=== PATIENT | female | born 1960 | race Caucasian/White ===

== ENCOUNTER → 2017-04-14 | Outpatient (CLI) | payer OTHER ==
[~2017-04-14] MED LIST: ADDERALL XR 3030 MG PO; ADVIL200 MG PO; AMPHETAMINE SAL30 MG PO; EFFEXOR75 MG PO; HYDROCODON-ACE1 EAC7 PO; INDOCIN50 MG PO; KEFLEX500 MG PO; LEVOXYL200 MCG PO; LIPITOR40 MG PO; SYNTHROID200 MCG PO; VOLTAREN75 MG PO
== END | disposition home or self-care (01) ==
LOC: CDC 11:07
DX: Z01.810 Encounter for preprocedural cardiovascular examination (principal); R93.8 Abnormal findings on diagnostic imaging of other specified body structures; R94.31 Abnormal electrocardiogram [ECG] [EKG]
CPT/HCPCS: 93000

== ENCOUNTER 2017-04-21 07:02 | Day surgery (SDC) | payer OTHER ==
[~2017-04-21] VITALS: Ht 170.2 cm; Wt 103.0 kg
[2017-04-21 07:35] VITALS: BP 140/72
[2017-04-21] MEDS ORDERED: HYDROCODON-ACE1 EAC7 PO (11:26)
[2017-04-21 12:55] VITALS: BP 139/67
[2017-04-21 13:50] VITALS: BP 136/69
== END 2017-04-21 13:59 | disposition home or self-care (01) ==
LOC: SDC 07:02
PROC: 0HBU0ZX Excision of Left Breast, Open Approach, Diagnostic (ICD-10-PCS; principal; 2017-04-21)
DX: C50.912 Malignant neoplasm of unspecified site of left female breast (principal); Z17.0 Estrogen receptor positive status [ER+]; Z80.3 Family history of malignant neoplasm of breast; K21.9 Gastro-esophageal reflux disease without esophagitis; E78.5 Hyperlipidemia, unspecified; E03.9 Hypothyroidism, unspecified; F41.1 Generalized anxiety disorder; E66.01 Morbid (severe) obesity due to excess calories; Z68.35 Body mass index [BMI] 35.0-35.9, adult; Z87.891 Personal history of nicotine dependence
CPT/HCPCS: 88305; 88341 TC; 88342 TC; 88360; J0131; J0461; J0690; J1100; J2250; J2405; J3010; S0020

== ENCOUNTER 2017-05-19 08:11 | Day surgery (SDC) | payer OTHER ==
[~2017-05-19] VITALS: Ht 170.2 cm; Wt 106.6 kg
[2017-05-19 08:58] VITALS: BP 129/64
[2017-05-19] MEDS ORDERED: HYDROCODON-ACE1 EAC7 PO (15:22)
[2017-05-19 16:25] VITALS: BP 182/84
[2017-05-19 17:19] VITALS: BP 140/67
== END 2017-05-19 17:25 | disposition home or self-care (01) ==
LOC: SDC 08:11 → NUC 10:30 → SDC 17:25
DX: C50.912 Malignant neoplasm of unspecified site of left female breast (principal); Z17.0 Estrogen receptor positive status [ER+]; E03.9 Hypothyroidism, unspecified; K21.9 Gastro-esophageal reflux disease without esophagitis; E78.5 Hyperlipidemia, unspecified; E66.01 Morbid (severe) obesity due to excess calories; Z68.38 Body mass index [BMI] 38.0-38.9, adult; Z80.3 Family history of malignant neoplasm of breast; Z87.891 Personal history of nicotine dependence; R94.31 Abnormal electrocardiogram [ECG] [EKG]
CPT/HCPCS: 78195; 78999; 84702; 88305; 88307; A9541; J0131; J0330; J0690; J1100; J1170; J2250; J2405; J3010; J7120; S0020